=== PATIENT | male | born 1965 | race Caucasian/White ===

== ENCOUNTER 2017-03-19 14:09 | Emergency (ER) | payer MEDICAID ==
[~2017-03-19] VITALS: Ht 172.7 cm; Wt 70.6 kg
[2017-03-19] MEDS ORDERED: HYDROcodone/acetaminophen 10/325mg tab PO ONE (15:20)
[2017-03-19] MEDS ORDERED: HYDR-565 PO (15:43)
[2017-03-19 15:56] VITALS: BP 122/68
== END 2017-03-19 15:57 | disposition home or self-care (01) ==
LOC: ER 14:10
DX: S62.306A Unspecified fracture of fifth metacarpal bone, right hand, initial encounter for closed fracture (principal); F15.10 Other stimulant abuse, uncomplicated; Z59.0 Homelessness; W22.09XA Striking against other stationary object, initial encounter; Y93.89 Activity, other specified; Y92.89 Other specified places as the place of occurrence of the external cause; Y99.8 Other external cause status
CPT/HCPCS: 29125; 73130; 99284; A6449

== ENCOUNTER 2017-03-25 11:20 | Emergency (ER) | payer MEDICAID ==
[~2017-03-25] VITALS: Ht 177.8 cm; Wt 72.0 kg
[~2017-03-25 11:20] MED LIST: HYDR-565 PO
[2017-03-25] MEDS ORDERED: IBUP-1986 PO (12:40)
[2017-03-25 12:43] VITALS: BP 119/72
== END 2017-03-25 12:56 | disposition home or self-care (01) ==
LOC: ER 11:21
DX: S20.212A Contusion of left front wall of thorax, initial encounter (principal); F17.200 Nicotine dependence, unspecified, uncomplicated; F15.10 Other stimulant abuse, uncomplicated; R22.31 Localized swelling, mass and lump, right upper limb; Z59.0 Homelessness; Z79.899 Other long term (current) drug therapy; X58.XXXA Exposure to other specified factors, initial encounter; Y93.89 Activity, other specified; Y92.89 Other specified places as the place of occurrence of the external cause; Y99.8 Other external cause status
CPT/HCPCS: 29125; 99283

== ENCOUNTER 2018-02-18 07:16 | Emergency (ER) | payer MEDICAID ==
[~2018-02-18] VITALS: Ht 172.7 cm; Wt 67.9 kg
[~2018-02-18 07:16] MED LIST changes: +ALBU8.5H8 IH; +AZIT-63 PO; -HYDR-565 PO; +IBUP-1986 PO; +METH4TAB81 PO
[2018-02-18 07:21] VITALS: BP 107/63
[2018-02-18] MEDS ORDERED: BENZ-16 PO (08:37)
[2018-02-18] MEDS ORDERED: PRED20TA PO (08:37)
[2018-02-18] MEDS ORDERED: AZIT-72 PO (08:37)
== END 2018-02-18 09:06 | disposition home or self-care (01) ==
LOC: ER 07:17
DX: J06.9 Acute upper respiratory infection, unspecified (principal); F15.90 Other stimulant use, unspecified, uncomplicated; Z98.890 Other specified postprocedural states; Z59.0 Homelessness; Z56.0 Unemployment, unspecified; Z79.2 Long term (current) use of antibiotics; Z79.899 Other long term (current) drug therapy
CPT/HCPCS: 71046; 99283

== ENCOUNTER 2018-03-15 16:01 | Emergency (ER) | payer MEDICAID ==
[~2018-03-15] VITALS: Ht 172.7 cm; Wt 68.0 kg
[~2018-03-15 16:01] MED LIST changes: -AZIT-63 PO; +BENZ-16 PO
[2018-03-15 16:22] VITALS: BP 132/34
--- NOTE | 2018-03-15 16:29 | NUR ---
PT EVALUATED BY [facility] IN TRIAGE, PT WAITING IN LOBBY FOR XRAY AND DISCHARGE INSTRUCTIONS.
== END 2018-03-15 17:21 | disposition home or self-care (01) ==
LOC: ER 16:05
DX: S50.02XA Contusion of left elbow, initial encounter (principal); M79.641 Pain in right hand; F17.210 Nicotine dependence, cigarettes, uncomplicated; F15.90 Other stimulant use, unspecified, uncomplicated; Z56.0 Unemployment, unspecified; Z59.0 Homelessness; X50.0XXA Overexertion from strenuous movement or load, initial encounter; Y93.89 Activity, other specified; Y92.89 Other specified places as the place of occurrence of the external cause; Y99.8 Other external cause status
CPT/HCPCS: 29125; 73130; 99283

== ENCOUNTER 2018-04-22 12:43 | Emergency (ER) | payer MEDICAID ==
[~2018-04-22] VITALS: Ht 172.7 cm; Wt 70.0 kg
[~2018-04-22 12:43] MED LIST changes: -BENZ-16 PO
[2018-04-22 13:10] VITALS: BP 190/79
[2018-04-22] MEDS ORDERED: ALBU8.5H8 IH (14:23)
== END 2018-04-22 14:31 | disposition home or self-care (01) ==
LOC: ER 12:44
DX: R05 Cough (principal); H93.8X3 Other specified disorders of ear, bilateral; F15.90 Other stimulant use, unspecified, uncomplicated; Z56.0 Unemployment, unspecified; Z59.0 Homelessness
CPT/HCPCS: 71045; 99283

== ENCOUNTER 2018-05-04 22:19 | Emergency (ER) | payer MEDICAID ==
[~2018-05-04] VITALS: Ht 172.7 cm; Wt 57.1 kg
[2018-05-04 22:31] VITALS: BP 155/82
[2018-05-05] MEDS ORDERED: triamcinolone acetonide 40mg/ml inj IM ONE (00:40)
[2018-05-05] MEDS ORDERED: ibuprofen tablet 400 MG TABLET PO ONE (00:45)
== END 2018-05-05 01:13 | disposition home or self-care (01) ==
LOC: ER 22:19
DX: M25.522 Pain in left elbow (principal); M79.18 Myalgia, other site; F15.90 Other stimulant use, unspecified, uncomplicated; Z98.890 Other specified postprocedural states; Z59.0 Homelessness; Z56.0 Unemployment, unspecified
CPT/HCPCS: 20552; 99284; J3301

== ENCOUNTER 2018-05-13 18:14 | Emergency (ER) | payer MEDICAID ==
[~2018-05-13] VITALS: Ht 172.7 cm; Wt 68.0 kg
[2018-05-13] MEDS ORDERED: ibuprofen tablet 400 MG TABLET PO ONE (20:20)
[2018-05-13 20:42] LABS: BASOPHILS # (AUTO) 0.1 X10'3 (0-0.2); BASOPHILS % (AUTO) 0.9 % (0-1); EOSINOPHILS # (AUTO) 0.2 X10'3 (0-0.9); EOSINOPHILS % (AUTO) 2.6 % (0-6); HEMATOCRIT 40.8 % (42.0-52.0); HEMOGLOBIN 13.7 g/dl (14.0-17.9); LYMPHOCYTES # (AUTO) 1.9 X10'3 (1.1-4.8); LYMPHOCYTES % (AUTO) 21.9 % (21-51); MEAN CORPUSCULAR HEMOGLOBIN 32.3 PG (27.0-31.0); MEAN CORPUSCULAR HGB CONC 33.6 g/dL (33.0-36.5); MEAN CORPUSCULAR VOLUME 95.9 FL (78-98); MEAN PLATELET VOLUME 7.3 FL (7.4-10.4); MONOCYTES # (AUTO) 0.9 X10'3 (0-0.9); MONOCYTES % (AUTO) 10.1 % (2-12); NEUTROPHILS # (AUTO) 5.6 X10'3 (1.8-7.7); NEUTROPHILS % (AUTO) 64.5 % (42-75); PLATELET COUNT 310 X10'3 (140-440); RED BLOOD COUNT 4.25 X10'6 (4.70-6.10); RED CELL DISTRIBUTION WIDTH 14.5 % (11.5-14.5); WHITE BLOOD COUNT 8.7 X10'3 (4.5-11.0)
[2018-05-13 20:48] LABS: ALBUMIN 3.8 G/DL (3.4-5.0); ANION GAP 9 (8-16); BLOOD UREA NITROGEN 9 MG/DL (7-18); BUN/CREATININE RATIO 9.9 (5.4-32.0); CHLORIDE 102 MMOL/L (99-107); CREATININE 0.91 MG/DL (0.60-1.10); GLUCOSE 95 MG/DL (70-104); POTASSIUM 3.7 MMOL/L (3.5-5.1); SODIUM 139 MMOL/L (135-145); TOTAL CARBON DIOXIDE 27.6 MMOL/L (24-32); eGFR 88 ML/MIN
[2018-05-13] MEDS ORDERED: ALBU8HFA PO (21:12)
[2018-05-13] MEDS ORDERED: PRED20TA PO (21:12)
[2018-05-13 21:28] VITALS: BP 115/92
== END 2018-05-13 21:31 | disposition home or self-care (01) ==
LOC: ER 18:15
DX: R05 Cough (principal); R09.3 Abnormal sputum; R51 Headache; R07.81 Pleurodynia; I10 Essential (primary) hypertension; F17.200 Nicotine dependence, unspecified, uncomplicated; Z59.0 Homelessness; Z56.0 Unemployment, unspecified
CPT/HCPCS: 36415; 71046; 80048; 85025; 93005; 99284

== ENCOUNTER 2018-06-19 11:57 | Emergency (ER) | payer MEDICAID ==
[~2018-06-19] VITALS: Ht 172.7 cm; Wt 65.0 kg
--- NOTE | 2018-06-19 12:04 | NUR ---
PATIENT IN LOBBY YEELING OUT THAT HIS ARM IS BROKEN. PATIENT IS WAVING HIS ARM ABOVE HIS HEAD AND IT HAS A BLACK VELCRO SPLINT ON IT. I TOLD THE PATIENT THAT WE WOULD BE WITH HIM LEVEL OF CARE AND TIME ALLOW
[2018-06-19 12:50] VITALS: BP 121/68
--- NOTE | 2018-06-19 15:22 | NUR ---
WHEN SLEEEPING PATIENT WAS ASKED TO PLEASE WAKE UP AND PARTICIPATE IN HIS CARE, HE SAT UP AND YELLED OUT. WHEN I ASKED WHY HE WAS YELLING HE YELLED "I WAS SOME FUCKING FOOD NOW" I ASKED HIM PLEASE NOT TO YELL THAT THERE ARE OTHER PEOPLE HERE, HE SAID "I LL JUST FUCK ALL THE WOMEN" PATIENT WAS TOLD THAT HIS TALK WAS INAPROPRIATE. THEN THE [employer] MACHINE CAME ON
--- NOTE | 2018-06-19 15:24 | NUR ---
SPOKE WITH DR LARRY WITH SOC AND SOC TELEPHYSCH IS IN PROGRESS
--- NOTE | 2018-06-19 15:26 | NUR ---
PATIENT STATES THAT HE HAS "SKITTLEPHRENIA"
[2018-06-19] MEDS ORDERED: LORazepam 2 mg/ml vial IM ONE (15:40)
[2018-06-19] MEDS ORDERED: haloperidol lactate 5mg/ml inj IM ONE (15:40)
[2018-06-19] MEDS ORDERED: diphenhydrAMINE 50 mg/ml inj IM ONE (15:40)
--- NOTE | 2018-06-19 15:40 | NUR ---
LOOKED INTO PATIENT'S ROOM WHILE BRINGING HIM SOME WATER, AND HE WAS NOT IN THE ROOM AND ALL HIS BELONGINGS WERE GONE WELL. SECURITY, STACK MATCHER AND KAHLIL KING NOTIFIED THAT PATIENT ELOPED
== END 2018-06-19 16:26 ==
LOC: ER 11:57
DX: F15.10 Other stimulant abuse, uncomplicated (principal); R45.851 Suicidal ideations; I10 Essential (primary) hypertension; F17.210 Nicotine dependence, cigarettes, uncomplicated; F12.90 Cannabis use, unspecified, uncomplicated; Z56.0 Unemployment, unspecified; Z59.0 Homelessness; S60.511A Abrasion of right hand, initial encounter; Y04.8XXA Assault by other bodily force, initial encounter; Y93.89 Activity, other specified; Y92.89 Other specified places as the place of occurrence of the external cause; Y99.8 Other external cause status
CPT/HCPCS: 73130; 99284

== ENCOUNTER 2018-12-14 05:28 | Emergency (ER) | payer MEDICAID ==
[~2018-12-14] VITALS: Ht 172.7 cm; Wt 69.1 kg
[2018-12-14] MEDS ORDERED: ondansetron 4mg rapidly disintigrating tab PO ONE (06:25)
[2018-12-14 06:32] VITALS: BP 145/72
== END 2018-12-14 07:03 | disposition home or self-care (01) ==
LOC: ER 05:29
DX: F15.10 Other stimulant abuse, uncomplicated (principal); F12.90 Cannabis use, unspecified, uncomplicated; I10 Essential (primary) hypertension; F17.200 Nicotine dependence, unspecified, uncomplicated; Z98.890 Other specified postprocedural states; Z59.0 Homelessness; Z56.0 Unemployment, unspecified
CPT/HCPCS: 99283

== ENCOUNTER 2018-12-18 12:03 | Emergency (ER) | payer MEDICAID ==
[~2018-12-18] VITALS: Ht 172.7 cm; Wt 65.8 kg
[2018-12-18 12:05] VITALS: BP 124/87
[2018-12-18] MEDS ORDERED: ketorolac tromethamine 15mg/ml inj. IM ONE (12:40)
== END 2018-12-18 13:06 | disposition home or self-care (01) ==
LOC: ER 12:03
DX: S46.811A Strain of other muscles, fascia and tendons at shoulder and upper arm level, right arm, initial encounter (principal); I10 Essential (primary) hypertension; F12.90 Cannabis use, unspecified, uncomplicated; F15.90 Other stimulant use, unspecified, uncomplicated; Z56.0 Unemployment, unspecified; Z59.0 Homelessness; Z79.899 Other long term (current) drug therapy; X58.XXXA Exposure to other specified factors, initial encounter; Y93.89 Activity, other specified; Y92.89 Other specified places as the place of occurrence of the external cause; Y99.8 Other external cause status
CPT/HCPCS: 73030; 96372; 99283; J1885